=== PATIENT | female | born 1965 | race Caucasian/White ===

== ENCOUNTER → 2016-05-27 | Outpatient (CLI) | payer OTHER | LOC: CIMAGING 14:28 | PROVIDERS: ATTEND Family Medicine | DX: R07.89 Other chest pain (principal); R91.8 Other nonspecific abnormal finding of lung field | CPT/HCPCS: 71100-PO ==

== ENCOUNTER 2016-05-28 15:29 | Emergency (ER) | payer OTHER ==
--- NOTE | 2016-05-28 15:41 | UCPHY ---
H & P Patient Type: Established HPI/ROS: CHIEF COMPLAINT: Elevated d-dimer. HISTORY OF PRESENT ILLNESS: The patient is a 51 year old female with history of rheumatoid arthritis, who was referred here by her primary care physician to rule out pulmonary embolism. The patient saw her PCP yesterday because she has been experiencing right sided chest pain as well as difficulty with deep inhalation for the past week. Rib imaging yesterday showed right lung consolidation of unknown origin. She had a chest x-ray today with results still pending. She was found to have an elevated d-dimer of 1.87 today. The patient continues to have chest pain substernally and to the right side of her chest. This pain is positional. She has been taking Advil for pain and finding minimal relief. She denies recent surgery. No recent immobilization. No family history of blood clots. The patient is on control medication. She smokes 1 cigarette per day. REVIEW OF SYSTEMS: A ten point review of systems was performed and is negative with the exception of the items mentioned in the HPI. Source: Patient Exam Limitations: No limitations - Medical/Surgical History Hx Asthma: No Hx Chronic Respiratory Disease: No Hx Diabetes: No Hx Cardiac Disease: No Hx Renal Disease: No Hx Cirrhosis: No Hx Alcoholism: No Hx HIV/AIDS: No Hx Splenectomy or Spleen Trauma: No Other PMH: Rheumatoid arthritis - Family History Significant Family History: No pertinent family hx - Social History Smoking Status: Light smoker Alcohol Use: Occasionally Drug Use: None Additional Social History: Works in [employer]. with 2 children, ages 13 and 15. - Physical Exam Exam: General Appearance: Alert. Vital signs reviewed. Blood pressure 169/84. Eyes: Pupils equal and round, no conjunctival injection, no discharge. Anicteric. ENT, Mouth: Mucous membranes are moist, no oropharyngeal erythema or edema. Neck: No lymphadenopathy, supple. Trachea midline. Respiratory: Lungs are clear to auscultation; no wheezes, rales, or rhonchi. Cardiovascular: Regular rate and rhythm; no murmur, rub, or gallop. Gastrointestinal: Abdomen is soft and nontender, no masses or organomegaly, bowel sounds normal. Skin: Warm and dry, no rashes on exposed skin, normal color. Back: Nontender to palpation over the thoracolumbar spine. No CVAT. Thorax: Tenderness to T6 mid axillary line. Extremities: No lower extremity edema, no calf tenderness or swelling. Neurological: Alert and oriented. Moving all four extremities easily and equally. Psychiatric: Normal affect. Constitutional: Initial Vital Signs Temperature (C) 37.6 C 05/28/16 15:47 Heart Rate 90 05/28/16 15:47 Respiratory Rate 20 05/28/16 15:47 Blood Pressure 169/84 H 05/28/16 15:47 O2 Sat (%) 99 05/28/16 15:47 O2 Delivery Mode Room Air Allergies/Adverse Reactions: No Known Allergies Allergy (Verified 05/28/16 15:52) Home Medications: Medication Instructions Recorded Hydrochlexochloriquine 07/11/15 Probiotic 07/11/15 Doxylamine Succinate [Unisom] 05/28/16 Meloxicam 05/28/16 Obcp 05/28/16 Medical Decision Making - Diagnostics Imaging: Study: CT Angio of the chest. Indication: Elevated d-dimer. Results: Negative for PE. The study was read by the radiologist, Dr. Garay. I viewed the images myself on the PACS system. ED Course/Re-evaluation: A CTA chest was ordered to look for pulmonary embolism. I-STAT shows creatinine of 0.7. I reviewed yesterday's and today's x-rays. 1720: I reevaluated the patient. I discussed CT findings. No evidence of PE on CTA. I suspect that this is musculoskeletal chest pain. I do not feel that further evaluation is needed today. Patient reassured. The patient agrees with plan to discharge home. She will followup with her [employer]. Differential Diagnosis: Shortness of breath including but not limited to pulmonary infectious process, COPD, asthma, pulmonary embolus and congestive heart failure. Departure - Departure Disposition: Home, Routine, Self-Care Clinical Impression: Costochondral chest pain Condition: Good Instructions: Costochondritis (ED) Additional Instructions: 1. Continue your Meloxicam. 2. Followup with your [employer] as discussed. 3.Try purchasing an over the counter lidocaine patch to help with pain. Referrals: Aurora Wagner MD [Primary Care Provider] - As per Instructions - PQRS PQRS Measurement: Does not apply Report Scribed for: Maxine Bishop Report Scribed by: Lia Dickey Date of Report: 05/28/16 Time of Report: 15:55 Physician Review and Approval Statement: 05/28/16 15:40 Portions of this note were transcribed by the medical records clerk. I, Dr. Maxine Bishop, personally performed the history, physical exam, and medical decision- making; and confirmed the accuracy of the information in the transcribed note.
[2016-05-28] MEDS ORDERED: IOPAMIDOL (ISOVUE 370) 100 ML BTL IV ONE (15:58)
[2016-05-28 16:04] VITALS: TEMP 99.6
[2016-05-28 17:42] VITALS: BP 126/73; PULSE 68; RESP 16; O2SAT 96
== END 2016-05-28 17:40 | disposition home or self-care (01) ==
LOC: CED 15:29
DX: R07.1 Chest pain on breathing (principal); M06.9 Rheumatoid arthritis, unspecified; F17.210 Nicotine dependence, cigarettes, uncomplicated
CPT/HCPCS: 71275-PO; 82947-QW; G0463-PO; Q9967

== ENCOUNTER → 2016-05-28 | Outpatient (CLI) | payer OTHER | LOC: CIMAGING 13:50 | PROVIDERS: ATTEND Family Medicine | DX: R07.89 Other chest pain (principal); J98.11 Atelectasis | CPT/HCPCS: 71020-PO ==